=== PATIENT | female | born 1945 | race Caucasian/White ===

== ENCOUNTER → 2017-06-18 | Day surgery (SDC) | payer OTHER ==
[~2017-06-18] VITALS: Ht 170.2 cm; Wt 80.7 kg
[~2017-06-18] MED LIST: ASCO100T11 PO; ASPI-973 PO; BIOT1CAP3 PO; CALC-243 PO; DICL100G26 TOPICAL; DICL100G8 TOPICAL; GABA600T2 PO; GLUC-120 PO; HYDR-3605 PO; HYDR-4003 PO; Ketamine 10 mg/mL 20 mL Inj ONE; Lactated Ringer's 1,000 ML IV SCH; MAGN1POW4 MC; MULT-1018 PO; MetoCLOpramide 5 mg/mL 2 mL Inj IVPUSH PRN; Ondansetron 2 mg/mL 2 mL Inj IVPUSH PRN; PRAM0.5T3 PO; Propofol 10,000 mCg/mL 20 mL Inj ONE; SYN.15T2 PO; VERA40TA2 PO; VITA100C22 PO; [UNRECOGNIZED DRUG - CODE] SL; fentaNYL-PF 50 mCg/mL 2 mL Inj ONE
--- NOTE | 2017-06-18 07:45 | PCM.HPANE ---
Patient Data Surgeon Admitting Provider: Attending Provider:Luigi Rodriguez MD Primary Care Physician:Peter Milligan MD Other Provider:Sowmya Petersingham Anesthesia Reason for Visit Polyp Of Colon Ht/WT & BMI Body Mass Index Allergies Coded Allergies: omeprazole (Verified Allergy, Severe, RASH, 05/25/13) ranitidine (Verified Allergy, Unknown, UNKNOWN, 05/25/13) morphine (Verified Adverse Reaction, Severe, NO ALLERGY; JUST "DOESN'T WORK", 05/25/13) Past Anesthesia History Anesthesia History: Denies:: Abnormal Airway, Anesthesia Reactions, Difficult Intubation, Malignant Hyperthermia Diabetes History Hx Diabetes?: No MRSA MRSA: No Medications Hypertension Medication: Yes Home Meds Incl Beta Hiral: No Reported Medications Ascorbic Acid (Vitamin C)100 Mg TabletUnknown Dose PO BID 06/14/17 Verapamil 40 Mg TabletUnknown Dose PO DAILY Ref 0 06/14/17 Levothyroxine (Synthroid)150 Mcg Mdowtv602 Mcg PO DAILY Ref 0 06/14/17 Multivitamin (Multi Vitamin Daily)1 Each Tablet1 Each PO DAILY 30 Days Ref 0 06/14/17 Pramipexole Dihydrochloride (Mirapex)0.5 Mg Tablet0.5 Mg PO 06/14/17 Gabapentin 600 Mg Mfchdw642 Mg PO TID Ref 0 06/14/17 Calcium Carbonate/Vitamin D3 (Calcium 600 + Vit D Tablet)1 Each Tablet1 Each PO DAILY 06/14/17 Biotin 1 Mg Capsule2 Mg PO DAILY 06/14/17 Cyanocobalamin (Vitamin B-12) (Vitamin B-12)3,000 Mcg LozengeUnknown Dose SL 06/14/17 Aspirin 81 Mg Wdpohl07 Mg PO DAILY Ref 0 06/14/17 Discontinued Reported Medications Diclofenac Gel (Voltaren Gel)100 Gm Tube1 Applic TOPICAL #1 TUBE 06/14/17 Vitamin E (Dl,Tocopheryl Acet) (Vitamin E)100 Unit CapsuleUnknown Dose PO BID 06/14/17 Magnesium Malate 1 Gm Powder1 Gm MC 06/14/17 HydrOXYzine HCl 10 Mg Yzzaoe48 Mg PO TID PRN For Itching Ref 0 06/14/17 Hydrocodone-Acetaminophen 5-325 mg 1 Each Tablet1 Tablet PO Q4H PRN For Pain Ref 0 06/14/17 Gluc 2Kcl/Chondr/Rozina Hy/Hy AC (Glucosamine & Chondroitin Cap)1 Each Capsule2 Each PO DAILY 06/14/17 Diclofenac Gel 100 Gm Tube1 Applic TOPICAL #1 TUBE 06/14/17 Asa Carb/Vitamin D3-Expunged, Do Not Renew! 1 Each Tablet.er1 Each PO DAILY 04/29/13 Multivitamin (Daily Value)1 Each Tablet1 Each PO DAILYWM 04/29/13 Levothyroxine-Expunged Drug, Do Not Renew! (Levoxyl-Expunged Drug, Do Not Renew! )137 Mcg Jxjeaq368 Mcg PO DAILY #30 Ref 6 TAKE FOR THYROID. NEED REPEAT THYROID LABS FOR FURTHER REFILLS 04/29/13 hyDROXyzine-Expunged Drug, Do Not Renew! 25 Mg Ud.geh13-46 Mg PO Q6HP TAKE NEEDED FOR INSOMNIA OR ANXIETY 04/29/13 Diazepam-Expunged Drug, Do Not Renew! 5 Mg Tablet5 Mg PO BID PRN #45 04/29/13 Gabapentin-Expunged Drug, Do Not Renew! (Neurontin-Expunged Drug, Do Not Renew!) 300 Mg Sjavfqq514 Mg PO BID #60 Ref 3 CAN INCREASE TO TWICE DAILY IF TOLERATED 04/29/13 Cyanocobalamin-Expunged Drug, Do Not Renew! (Vitamin C-65-Awoujrhv Drug, Do Not Renew!)500 Mcg Tablet1 Tab PO DAILY 04/29/13 Ascorbic Acid-Expunged Drug, Do Not Renew! (Vitamin C-Expunged Drug, Do Not Renew!)500 Mg Zykbkl549 Mg PO DAILY 04/29/13 Pramipexole-Expunged Drug, Do Not Renew! (Mirapex-Expunged Drug, Do Not Renew!) 0.25 Mg Tablet0.5 Mg PO DAILY #60 Ref 11 TAKE 1-2 HOURS BEFORE BEDTIME 02/27/12 Glucosamine Sulfate (Glucosamine) Tab2 Tab PO BID 08/05/11 Grape Seed Extract 50 Mg Iwzchzk07 Mg PO DAILY 08/05/11 Guanfacine-Expunged Drug, Do Not Renew! (Intuniv-Expunged Drug, Do Not Renew!)4 Mg Tab.sr.24h1 Mg PO BID 08/05/11 Ginkgo Biloba-Expunged Drug, Do Not Renew! 30 Mg Vihxsoa631 Mg PO DAILY 08/05/11 Lacto Acid-Expunged Drug, Do Not Renew! (Acidophilus-Expunged Drug, Do Not Renew !)1 Each Capsule1 Each PO DAILY 08/05/11 [vit E] No Conflict Qvncs477 Unit PO BID 08/05/11 Biotin 2,500 Mcg Capsule1,000 Mcg PO DAILY 08/05/11 Aspirin-Expunged Drug, Do Not Renew! 81 Mg Bfseqr83 Mg PO DAILY 08/05/11 Buspirone-Expunged Drug, Do Not Renew! 15 Mg Qahnnz60 Mg PO BID 08/01/11 Discontinued Scripts Naproxen 500 Mg Nhf674 Mg PO BID PRN For Pain #20 TABLET Ref 0 Prov:OmarXander Randolph ENERGY CONSULTANT 05/29/15 History History of ENT Problems?: Yes HEENT History: Denies:: Abnormal Airway Difficult Intubation Dysphagia Hearing Problem Denture Type: None Teeth Condition: Within Normal Limits (polyps) Hx of Heart Problems?: Yes Cardiovascular History: Positive for:: Hypertension (CURRENTLY ON NO MEDS) Denies:: Atrial Fibrillation Chest Pain Thrombophlebitis (VARICOSITIES) Valvular Heart Disease Hx of Respiratory Problem?: Yes Respiratory History: Denies:: Asthma COPD Use of C-PAP Machine ( SNORES SLEEP STUDY 01/2012) Hx Neurologic Problems?: Yes Neurological History: Positive for:: Headaches (R/T NECK PAIN) Denies:: Alzheimer's Disease CVA Dementia Dizziness Parkinson's Disease Seizures Hx of GI Problems?: Yes Hx of Problems?: Yes Genitourinary History: Positive for:: Urinary Tract Infection (HX OF ADMISSION 07/2011 FOR UROSEPSIS) Denies:: HX of Hemodialysis Kidney Stones HX of Peritoneal Dialysis: No Female Hx: Positive for:: Problems with Breasts? (S/P LT BREAST BX) Denies:: Currently Skin History: Denies:: History Skin Disorders? Pressure Ulcers Hx Musculoskeletal Problems?: Yes Musculoskeletal History: Positive for:: Back Injury (C/OF CHR NECK/BACK PAIN) Degenerative Joint Joint Replacement (S/P BILAT TKA'S) Musculoskeletal Trauma (S/P BILAT SHOULDER RPR'S RECENT HX POSTERIOR 12TH RIB FX) Hx of Psycho/Social Problems?: Yes Psycho Social History: Positive for:: Anxiety (ADD) Denies:: Bipolar Disorder Hx Depression Hx Surgeries?: Yes (BILATERAL KNEE REPLACEMENTS, BILATERAL SHOULDER, TONSILS, LT BREAST BX) Hx Any Other Health Problems?: Yes Other History: Positive for:: Hospitalization (UROSEPSIS) Thyroid Disease (S/P PARTIAL THYROIDECTOMY) Denies:: Cancer Endocrine Disease History Blood Transfusions: Positive for:: Blood Transfusions Denies:: Blood Transfuse Reaction Hx Diabetes: No Hx Alcohol Use: NoHx Substance Use: Yes (MEDICAL MARIJUANA)Have You Smoked inLast 12 mo: No Stop/Bang Treated for Sleep Apnea?: No Do You Have a CPAP Machine?: No BONILLA Risk Assessment: Low Risk, <3 Yes Risk Assessment Category Category 1A: Patient has history of documented sleep apnea, and HAS NOT received any narcotic, sedative or anesthesia administration during this stay. Category 1B: Patient has history of documented sleep apnea, and HAS received any narcotic , sedative or anesthesia administration during this stay Category 2: Patient has SUSPECTED Obstructive Sleep Apnea, and HAS received any narcotic , sedative or anesthesia administration during this stay. Category 3: Patient has SUSPECTED Obstructive Sleep Apnea and HAS NOT received narcotic, sedative or anesthesia administration during this stay. Category 4: Outpatient in Procedural Areas with known sleep apnea or who screen positive for High Risk via the STOP/BANG questionnaire. Exam Exam General Appearance: Alert, Oriented X3, Cooperative, No Acute Distress HEENT/AIRWAY: MP 2 Lungs: Clear to Auscultation, Normal Air Movement Heart: Exam Unremarkable, Regular Rate/Rhythm, No Murmurs/Rubs/Gallops Plan Impression Patient chart reviewed, patient interviewed and anesthestic plan with risks, benefits, and alternatives discussed, and informed consent obtained. ASA Physical Status: ASA2 Mod Systemic Disease Anesthetic Plan: MAC Bene/Risks/Altern/Consents: Yes HP Complete Prior to Induction: Yes Mauricio Smith MD Jun 18, 2017 07:45
[2017-06-18 13:00] VITALS: BP 156/74; PULSE 56; RESP 16; O2SAT 99
[2017-06-18] MEDS: Lactated Ringer's 1,000 ML IV ONE ×2 (13:28→13:57)
[2017-06-18 14:03] VITALS: BP 143/75; PULSE 62; RESP 11; O2SAT 99
[2017-06-18 14:10] VITALS: BP 159/81; PULSE 60; RESP 12; O2SAT 98
[2017-06-18 14:14] VITALS: BP 160/94; PULSE 58; RESP 12; O2SAT 99
--- NOTE | 2017-06-18 17:07 | ENDO ---
[address] [address] ENDOSCOPY PROCEDURE PATIENT: TERRENCE JOYNER : 1945 MR#: [id number] ADMIT: 06/18/2017 JOB ID: [id number] DATE: 06/18/2017 PRIMARY PROVIDER: Velma Ornelas ND PROCEDURE: Colonoscopy. INDICATION: A 72-year-old female with a personal history of colon polyps returning for surveillance. EQUIPMENT: PCF H 180 AL. SEDATION: Monitored anesthesia as provided by Dr. Mauricio Smith. COMPLICATIONS: None identified. BOWEL PREPARATION: Suboptimal in many locations. PROCEDURE INFORMATION: After the risks and benefits were explained, written and verbal informed consent was obtained. The patient was brought into the endoscopy suite and placed into the left lateral decubitus position. Sedation was achieved using the above-stated medications with the addition of oxygen via nasal cannula. A digital rectal examination was accomplished. Aside from some mild internal hemorrhoids, no other significant pathology was appreciated. The scope was introduced into the rectum and advanced to the cecum as identified by the appendiceal orifice and ileocecal valve. The scope was slowly withdrawn to carefully examine the mucosa for any defects or lesions. Retroflexed views were avoided in the rectum. Multiple direct views were made through the dentate line for exclusion of pathology. The colon was decompressed and the scope removed from the patient, who tolerated the procedure well. FINDINGS: The patient had an exceptionally challenging sigmoid to navigate, quite tortuous and floppy. I did not appreciate any significant polyps or mass lesions throughout, but some areas were obscured by fibrous and seed-based food debris. We attempted to clean some of these areas and the scope would consistently get clogged. Within the limitations of bowel prep I did not appreciate any big pathology. ENDOSCOPIC DIAGNOSES: 1. Suboptimal bowel prep. 2. Mild internal hemorrhoids. RECOMMENDATIONS: In a normal exam with a personal history of colon polyps we would typically stay in five years would be appropriate for follow up. In the patients case, with a suboptimal bowel prep, I would recommend a repeat surveillance exam in 2-1/2 years with perhaps an extra day of liquids in advance of the official prep.
--- NOTE | 2017-06-19 07:31 | PCM.ANEP1 ---
Post Anesthesia PACU Phase 1 Assessment Anesthetic Administered: MAC Level of Alertness: Awake, talking WALKER's with Equal Strength: Yes Pain: No Nausea or Vomiting: No CV Function & Hydration Stable: Yes Airway Device: Lungs: Clear to Auscultation, Normal Air Movement Dermatome Level: Full Sensation PACU Phase 2 Assessment Complications: No Follow up Care: No Patient Instructions Provided: N/A Mauricio Smith MD Jun 19, 2017 07:31
== END | disposition home or self-care (01) ==
LOC: END 00:22
PROVIDERS: ATTEND Internal Medicine Gastroenterology
DX: Z12.11 Encounter for screening for malignant neoplasm of colon (principal); K64.8 Other hemorrhoids; Z86.010 Personal history of colon polyps; E78.5 Hyperlipidemia, unspecified; M79.7 Fibromyalgia; E03.9 Hypothyroidism, unspecified; G47.00 Insomnia, unspecified; F41.9 Anxiety disorder, unspecified; G25.81 Restless legs syndrome; Z79.82 Long term (current) use of aspirin
CPT/HCPCS: G0105; J2250; J2704; J3010; J7120